=== PATIENT | male | born 1985 ===

== ENCOUNTER 2020-06-28 14:24 | Outpatient (REF) | payer OTHER, SELFPAY ==
--- NOTE | 2020-06-28 | US_ITS ---
EXAMINATION: US PELVIS, LIMITED/FOLLOW UP CLINICAL INFORMATION: Cutaneous abscess. COMPARISON: None TECHNIQUE: Targeted sonographic evaluation of the perineum, adjacent to the anus. FINDINGS: There are 2 perianal complex areas. To the right of the anus this area measures 2.1 x 0.8 x 1.2 cm. There is an area of linear internal echogenicity which could represent a drain. This is within the abnormal area. There is increased through transmission, suggesting complex fluid. Internal air noted. To the left of the anus there is a complex area measuring 2.9 x 1.2 x 1.4 cm. This also has increased through transmission suggesting a complex collection. At the midline adjacent to the anus there is a complex area of fluid and gas without defined wall. US/US pelvic limited IMPRESSION: Multiple complex collections are seen in the perianal region, as detailed above. The right-sided collection may have a drain internally. The midline collection is not well-defined for drainage.
== END 2020-06-28 14:25 | disposition home or self-care (01) ==
LOC: HO.HMGCX 14:24
PROVIDERS: Visit Provider Registered Nurse Community Health
DX: L02.91 Cutaneous abscess, unspecified (principal)
CPT/HCPCS: 76857